=== PATIENT | female | born 1950 | race Caucasian/White ===

== ENCOUNTER 2018-04-09 12:22 | Day surgery (SDC) | payer OTHER ==
[~2018-04-09] VITALS: Ht 160 cm; Wt 107.5 kg
[~2018-04-09 12:22] MED LIST: CARV25 PO; CHOL10002 PO; CITA20 PO; CYAN500 PO; CYCL10 PO; Celexa10 MG PO; Coreg12.5 MG PO; Daily Vitamin1 EAC8 PO; HAIR, SKIN & N1 EAC1 PO; HYDCHL25 PO; IBU800 MG PO; K-Dur10 MEQ PO; LISI5 PO; LOSA50 PO; Levothyroxine500 MCG PO; METF500C PO; PRAVASTATIN SOD10 MG PO
--- NOTE | 2018-04-09 12:41 | NUR ---
Ambulatory in Day Surgery History, Chart, Medications and Allergies reviewed before start of procedure.Lungs clear T/O to Auscultation. Patient confirms NPO status and agrees with scheduled surgery. Patient reports completing Chlorhexadine shower X2 prior to admission to hospital.Surgical site prepped with 2% Chlorhexidine cloth wipe.
--- NOTE | 2018-04-09 19:31 | NUR ---
SHIFT SUMMARY PT A&OX4, VSS, S/P R TKA, SURGICAL BANDAGE WITH TOMEKA WRAP CDI, POLAR CARMITA ON. JADEN PO, DENIES N&V. PAIN MANAGED PER EMAR. REPORT GIVEN TO ANEL MORFIN.
[2018-04-10 04:11] LABS: BASOPHILS ABSOLUTE AUTO 0.01 K/mm3 (0.00-0.23); BASOPHILS PERCENT AUTO 0 % (0-2); EOSINOPHILS PERCENT AUTO 0 % (0-6); Hematocrit 34.2 % (33.0-51.0); Hemoglobin 10.9 g/dL (11.5-16.0); IMMATURE GRAN ABSOLUTE AUTO 0.04 K/mm3 (0.00-0.10); IMMATURE GRAN PERCENT AUTO 1 % (0-1); LYMPHOCYTES ABSOLUTE AUTO 0.62 K/mm3 (0.84-5.20); LYMPHOCYTES PERCENT AUTO 8 % (21-46); MONOCYTES ABSOLUTE AUTO 0.42 K/mm3 (0.16-1.47); MONOCYTES PERCENT AUTO 5 % (4-13); Mean Corpuscular HGB 31.1 pg (26.0-34.0); Mean Corpuscular HGB Conc 31.9 g/dL (31.5-36.5); Mean Corpuscular Volume 98 fL (80-100); Mean Platelet Volume 9.6 fL (9.1-12.4); NEUTROPHILS ABSOLUTE AUTO 6.68 K/mm3 (1.96-9.15); NEUTROPHILS PERCENT AUTO 86 % (41-73); Platelet Count 182 K/mm3 (150-400); RDW Coefficient Variation 13.2 % (11.7-14.2); RDW Standard Deviation 47.6 fL (35.1-46.3); White Blood Cell Count 7.77 K/mm3 (4.00-11.30)
[2018-04-10 04:36] LABS: Magnesium, Blood 1.8 mg/dL (1.6-2.4)
[2018-04-10 04:37] LABS: Bun/Creatinine Ratio 17.3 (12.0-20.0); Creatinine, Blood 1.1 mg/dL (0.40-1.00); Potassium, Blood 4.5 mmol/L (3.5-5.5)
--- NOTE | 2018-04-10 06:19 | NUR ---
SHIFT SUMMARY PT IS POD 1 RIGHT TKA. PT SLEPT WELL OVERNIGHT. AMBULATED TO BR WITH 1 ASSIST AND FWW. MINIMAL PAIN, MEDICATED PER EMAR. WEANED OFF POST OP O2, NOW SATS >90 ON RA. RECEIVED COVERAGE AT HS PER EMAR. PT A&O, ABLE TO MAKE NEEDS KNOWN. WILL CTM UNTIL PASS TO NEXT SHIFT.
[2018-04-10] MEDS ORDERED: PROM25 PO (09:57)
[2018-04-10] MEDS ORDERED: ASPI325EC PO (09:57)
[2018-04-10] MEDS ORDERED: OXYC5 PO (09:57)
--- NOTE | 2018-04-10 11:04 | NUR ---
04/10/18 1104 Radha Mantilla VERIFICATIONS, CHART EDITS.
[2018-04-10] MEDS ORDERED: CLIN300 PO (12:53)
[2018-04-10] MEDS ORDERED: Bactrim Ds Tab1 EACH PO (13:04)
--- NOTE | 2018-04-10 15:40 | NUR ---
PATIENT D/C'D HOME AT THIS TIME WITH FAMILY. PATIENT STATES UNDERSTANDING OF MEDS, ACTIVITY, OP PT, WOUND CARE, F/U APPT, ETC. PATIENT STATES PAIN CONTROLLED, TOLERATING PO, VOIDING WELL. NO CHANGES OR C/O AT THIS TIME.
== END 2018-04-10 15:40 | disposition home or self-care (01) ==
LOC: ORSCMMR 12:22 → ORD 13:30 → ORSCMMR 14:00 → SURS 17:01 → ORSCMMR 04-10 15:40
PROVIDERS: Orthopaedic Surgery
PROC: 8E0YXBZ Computer Assisted Procedure of Lower Extremity (ICD-10-PCS; principal; 2018-04-09 14:00)
PROC: 0SRC0J9 Replacement of Right Knee Joint with Synthetic Substitute, Cemented, Open Approach (ICD-10-PCS; principal; 2018-04-09 14:00)
DX: M17.11 Unilateral primary osteoarthritis, right knee (principal); I10 Essential (primary) hypertension; E11.9 Type 2 diabetes mellitus without complications; E66.01 Morbid (severe) obesity due to excess calories; Z68.41 Body mass index [BMI] 40.0-44.9, adult; Z79.899 Other long term (current) drug therapy
CPT/HCPCS: 36415; 73560-RT; 80048; 82947; 83735; 85025; 88300; 97110; 97116; 97162; C1713; C1776; J0171; J0690; J0735; J1100; J1815; J1885; J2250; J2370; J2405; J2795; J3010; J7120

== ENCOUNTER → 2018-05-01 | Outpatient (CLI) | payer OTHER ==
[~2018-05-01] MED LIST changes: +ASPI325EC PO; +Bactrim Ds Tab1 EACH PO; +CLIN300 PO; +OXYC5 PO; +PROM25 PO
== END | disposition home or self-care (01) ==
LOC: LAB EV 16:00 → LAB SHORT 16:00
DX: R30.0 Dysuria (principal)
CPT/HCPCS: 87077; 87086; 87186

== ENCOUNTER → 2018-07-02 | Outpatient (CLI) | payer OTHER ==
[2018-07-02 16:04] LABS: Source, Urine Clean Catch
[2018-07-02 18:29] LABS: Appearance, Urine Cloudy (Clear); Bilirubin, Urine Neg (Neg); Blood, Urine 1+ (Neg); Color, Urine Yellow (P-Yellow); Glucose Qualitative, Urine Neg (Neg); Ketones, Urine Neg (Neg); Leukocyte Esterase, Urine 2+ (Neg); Nitrite, Urine Pos (Neg); Protein, Urine Neg (Neg); Specific Gravity, Urine 1.015 (1.003-1.022); Urobilinogen, Urine NORM (Normal)
[2018-07-02 18:51] LABS: White Blood Cells, Urine 50-100 /hpf (0-5)
[2018-07-02 18:52] LABS: Bacteria Many /hpf; Squamous Epithelial Cells Few /hpf (Few)
== END | disposition home or self-care (01) ==
LOC: LAB 16:02 → LAB SHORT 16:02
PROVIDERS: Physician Assistant Medical
DX: R35.0 Frequency of micturition (principal); R30.0 Dysuria; R39.15 Urgency of urination
CPT/HCPCS: 81001; 87077; 87086; 87147; 87186

== ENCOUNTER → 2018-07-24 | Outpatient (CLI) | payer OTHER | END | disposition home or self-care (01) | LOC: LAB EV 08:10 → LAB SHORT 08:10 | DX: R30.0 Dysuria (principal) | CPT/HCPCS: 87086 ==

== ENCOUNTER 2019-04-07 01:22 | Emergency (ER) | payer OTHER ==
[~2019-04-07] VITALS: Ht 160 cm; Wt 106.1 kg
[2019-04-07] MEDS ORDERED: LEVSOD25 PO (01:32)
[2019-04-07] MEDS ORDERED: CEFD300 PO (02:29)
== END 2019-04-07 02:40 | disposition home or self-care (01) ==
LOC: ER 01:22
DX: H66.91 Otitis media, unspecified, right ear (principal); Z88.2 Allergy status to sulfonamides; Z79.899 Other long term (current) drug therapy; Z79.84 Long term (current) use of oral hypoglycemic drugs; Z79.82 Long term (current) use of aspirin
CPT/HCPCS: 99282; A9270; A9270-GY

== ENCOUNTER → 2019-06-17 | Outpatient (CLI) | payer OTHER ==
[~2019-06-17] MED LIST changes: +CEFD300 PO; +LEVSOD25 PO
== END | disposition home or self-care (01) ==
LOC: LAB SHORT 09:49 → PLD 09:49
DX: N90.4 Leukoplakia of vulva (principal)
CPT/HCPCS: 88305; 88312

== ENCOUNTER → 2020-03-09 | Outpatient (CLI) | payer OTHER ==
[~2020-03-09] MED LIST changes: +AMOCLA875 PO; +Aspir 8181 MG PO; +OXAYDO5 M2 PO
== END | disposition home or self-care (01) ==
LOC: LAB 13:00 → LAB SHORT 13:00
DX: L98.8 Other specified disorders of the skin and subcutaneous tissue (principal)
CPT/HCPCS: 87070; 87205

== ENCOUNTER → 2020-05-10 | Outpatient (CLI) | payer OTHER | END | disposition home or self-care (01) | LOC: PLD 13:20 → LAB SHORT 13:20 | DX: R30.0 Dysuria (principal) | CPT/HCPCS: 87086 ==

== ENCOUNTER → 2020-06-08 | Outpatient (CLI) | payer OTHER ==
[~2020-06-08] MED LIST changes: -AMOCLA875 PO; -Aspir 8181 MG PO; -OXAYDO5 M2 PO
[2020-06-10 09:33] LABS: Stool Occult Bld Immuno 1 Negative (NEGATIVE)
== END ==
LOC: LAB SHORT 12:01
PROVIDERS: Internal Medicine Gastroenterology
DX: Z83.71 Family history of colonic polyps (principal); Z88.2 Allergy status to sulfonamides
CPT/HCPCS: 82274

== ENCOUNTER 2020-07-20 09:35 | Inpatient (IN) | payer OTHER, MEDICARE ==
[~2020-07-20] VITALS: Ht 160 cm; Wt 107.4 kg
--- NOTE | 2020-07-20 10:45 | NUR ---
Ambulatory in Day Surgery. History, Chart, Medications and Allergies reviewed before start of procedure. Lungs clear T/O to Auscultation. Patient confirms NPO status and agrees with scheduled surgery. Pre-Op teaching done. Pt verbalizes understanding.
--- NOTE | 2020-07-20 16:06 | NUR ---
PATIENT CAME BACK FROM PACU TODAY 07/20/20. POD 0 LEFT SHOULDER REPAIR PATIENT CAME BACK ALERT AND ORIENTED X4. VS ARE WNL AND IS ON 2L NC. PATIENT DENIES PAIN AT THIS TIME. FOAM DRESSING AND GAUZE ARE ON THE LEFT SHOULDER AND IS C/D/I. IMMOBILIZER IS ON. SHE DENIES NUMBNESS AND TINGLING. PATIENT IS ABLE TO WIGGLE FINGERS AND TOES. TOLERATING SMALL AMOUNTS OF LIQUID. SHE IS VOIDING. CALL LIGHT IS WITHIN REACH.
--- NOTE | 2020-07-20 17:04 | NUR ---
SHIFT SUMMARY: POD 0 LEFT TOTAL SHOULDER REPAIR PATIENT IS ALERT AND ORIENTED X4. VS ARE WNL AND IS ON RA. PATIENT DOESN'T REPORT PAIN BUT HAS TAKEN HER SCHEDULED TYLENOL. SHOULDER IS IN IMMOBILIZER AND THE DRESSING IS C/D/I. DENIES NUMBNESS AND TINGLING. SHE IS ABLE TO WIGGLE ALL FINGERS. SHE IS VOIDING AND TOLERATING PO INTAKE. PATIENT IS CURRENTLY SITTING UP IN BED TALKING ON THE PHONE TO FAMILY. CALL LIGHT IS WITHIN REACH.
--- NOTE | 2020-07-21 04:07 | NUR ---
A/OX4. VSS ON RA. 1 EMESIS IN EVENING.
[2020-07-21 05:03] LABS: BASOPHILS ABSOLUTE AUTO 0.02 K/mm3 (0.00-0.23); BASOPHILS PERCENT AUTO 0 % (0-2); EOSINOPHILS PERCENT AUTO 0 % (0-6); Hematocrit 34.9 % (33.0-51.0); Hemoglobin 11.4 g/dL (11.5-16.0); IMMATURE GRAN ABSOLUTE AUTO 0.06 K/mm3 (0.00-0.10); IMMATURE GRAN PERCENT AUTO 1 % (0-1); LYMPHOCYTES ABSOLUTE AUTO 0.76 K/mm3 (0.84-5.20); LYMPHOCYTES PERCENT AUTO 7 % (21-46); MONOCYTES ABSOLUTE AUTO 0.64 K/mm3 (0.16-1.47); MONOCYTES PERCENT AUTO 6 % (4-13); Mean Corpuscular HGB 31.3 pg (26.0-34.0); Mean Corpuscular HGB Conc 32.7 g/dL (31.5-36.5); Mean Corpuscular Volume 96 fL (80-100); Mean Platelet Volume 10.1 fL (9.1-12.4); NEUTROPHILS ABSOLUTE AUTO 9.19 K/mm3 (1.96-9.15); NEUTROPHILS PERCENT AUTO 86 % (41-73); Platelet Count 189 K/mm3 (150-400); RDW Coefficient Variation 13.6 % (11.7-14.2); RDW Standard Deviation 48.6 fL (35.1-46.3); Red Blood Cell Count 3.64 M/mm3 (3.80-5.20); White Blood Cell Count 10.67 K/mm3 (4.00-11.30)
[2020-07-21 05:28] LABS: Anion Gap 5 mmol/L (6-16); Blood Urea Nitrogen 10 mg/dL (8-24); Bun/Creatinine Ratio 12.8 (12.0-20.0); CO2, Blood 28 mmol/L (21-32); Calcium, Blood 8.7 mg/dL (8.5-10.1); Chloride, Blood 97 mmol/L (98-108); Creatinine, Blood 0.78 mg/dL (0.40-1.00); Glomerular Filtration Rate >60 (60-); Glucose, Blood 167 mg/dL (70-99); Magnesium, Blood 2.1 mg/dL (1.6-2.4); Potassium, Blood 4.7 mmol/L (3.5-5.5); Sodium, Blood 130 mmol/L (136-145)
--- NOTE | 2020-07-21 06:14 | NUR ---
A/OX4. VSS ON RA. PAIN MANAGED WELL W/ COLD THERAPY AND SCHEDULED PAIN MEDS.PT C/O PRURITUS, BENADRYL GIVEN AND EFFECTIVE. PATIENT HAD 1 EMESIS AND NAUSEA IN EVENING, ZOFRAN GIVEN, SLEEPING B/W CARE. USING CALL LIGHT TO MAKE NEEDS KNOWN.
[2020-07-21] MEDS ORDERED: Aspir 8181 MG PO (07:53)
[2020-07-21] MEDS ORDERED: AMOCLA875 PO (07:54)
[2020-07-21] MEDS ORDERED: PROM25 PO (07:55)
[2020-07-21] MEDS ORDERED: OXAYDO5 M2 PO (07:55)
--- NOTE | 2020-07-21 11:16 | NUR ---
1105 DISCHARGE TEACHING AND MATERIALS PROVIDED, R FOREARM IV REMOVED, ENSURED PT HAD ALL PERSONAL BELONGINGS AND POLAR PACK IN POSSESSION. PT WAITING IN ROOM FOR HER RIDE TO PICK HER UP. PT COMFORTABLE GOING HOME.
--- NOTE | 2020-07-21 11:55 | NUR ---
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
== END 2020-07-21 11:00 | disposition home or self-care (01) | DRG 483 ==
LOC: ORSCMMR 09:35 → SURS 10:51 → ORSCMMR 11:15 → SURS 14:36 → ORSCMMR 08-03 07:30 → ORD 08-03 11:15 → ORSCMMR 08-03 11:15
PROVIDERS: ADMIT Orthopaedic Surgery
PROC: 0RRK00Z Replacement of Left Shoulder Joint with Reverse Ball and Socket Synthetic Substitute, Open Approach (ICD-10-PCS; principal; 2020-07-20 11:15)
DX: M19.012 Primary osteoarthritis, left shoulder (principal); I10 Essential (primary) hypertension; M79.7 Fibromyalgia; F32.9 Major depressive disorder, single episode, unspecified; M75.112 Incomplete rotator cuff tear or rupture of left shoulder, not specified as traumatic; E11.9 Type 2 diabetes mellitus without complications; G43.909 Migraine, unspecified, not intractable, without status migrainosus; Z96.651 Presence of right artificial knee joint; Z90.49 Acquired absence of other specified parts of digestive tract; Z90.710 Acquired absence of both cervix and uterus; Z98.890 Other specified postprocedural states
CPT/HCPCS: 36415; 73030; 80048; 82947; 83735; 85025; 97110; 97116; 97162; 97166; 97530; 97535; A9270; C1713; C1776; J0171; J0696; J0735; J1100; J1815; J1885; J2250; J2370; J2405; J2704; J2795; J3010; J3370; J7120

== ENCOUNTER 2021-10-16 11:08 | Day surgery (SDC) | payer OTHER ==
[~2021-10-16] VITALS: Ht 160 cm; Wt 105.7 kg
[~2021-10-16 11:08] MED LIST changes: +AMOCLA875 PO; +Aspir 8181 MG PO; +OXAYDO5 M2 PO
[2021-10-16] MEDS ORDERED: HYDPAM50 PO (12:11)
[2021-10-16] MEDS ORDERED: AMLO5 PO (12:12)
[2021-10-16] MEDS ORDERED: PARO20 PO (12:12)
--- NOTE | 2021-10-16 12:52 | NUR ---
10/16/21 1252 Marge Fritz BLOCK COMPLETE IN OR BY DR MENDIOLA. SITE CHECK COMPLETE. VSS.
--- NOTE | 2021-10-16 13:52 | NUR ---
10/16/21 1352 Terrell Carmona GIVEN FOR WORSENING PAIN TO RIGHT WRIST AT 05/04
== END 2021-10-16 14:03 | disposition home or self-care (01) ==
LOC: ORSCSDS 11:08
PROVIDERS: Orthopaedic Surgery
PROC: 01N50ZZ Release Median Nerve, Open Approach (ICD-10-PCS; principal; 2021-10-16 13:00)
DX: G56.03 Carpal tunnel syndrome, bilateral upper limbs (principal); E11.9 Type 2 diabetes mellitus without complications; I10 Essential (primary) hypertension; M79.7 Fibromyalgia; F32.A Depression, unspecified; E03.9 Hypothyroidism, unspecified; E66.01 Morbid (severe) obesity due to excess calories; Z68.41 Body mass index [BMI] 40.0-44.9, adult; Z79.84 Long term (current) use of oral hypoglycemic drugs; Z79.899 Other long term (current) drug therapy
CPT/HCPCS: 82947; A9270; J0690; J2250; J2704; J3010; J7120

== ENCOUNTER 2022-06-04 09:48 | Day surgery (SDC) | payer OTHER ==
[~2022-06-04] VITALS: Ht 160 cm; Wt 106.4 kg
[~2022-06-04 09:48] MED LIST changes: +AMLO5 PO; +HYDPAM50 PO; +PARO20 PO
--- NOTE | 2022-06-04 12:36 | NUR ---
06/04/22 1236 Olga Lidia Laboy PT ON [facility] WITH IRONING BOARD UNDER LEFT ARM, RIGHT SIDE RAIL UP ON GURNEY.
--- NOTE | 2022-06-04 13:26 | NUR ---
06/04/22 1326 EMELY PAULA Did trial from 10L to 5L. Pt tolerated well. Continues to be on 5L.
--- NOTE | 2022-06-04 13:39 | NUR ---
06/04/22 1339 EMELY PAULA OCCASSIONALLY O2 SAT DECREASES TO LOW 90'S. REMOVED EXTRA HEAD SUPPORT, O2 INCREASES ON RA TO 96%. 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
== END 2022-06-04 14:20 | disposition home or self-care (01) ==
LOC: ORSCSDS 09:48
PROVIDERS: Orthopaedic Surgery
PROC: 01N54ZZ Release Median Nerve, Percutaneous Endoscopic Approach (ICD-10-PCS; principal; 2022-06-04 11:15)
PROC: 0LN80ZZ Release Left Hand Tendon, Open Approach (ICD-10-PCS; principal; 2022-06-04 11:15)
DX: G56.02 Carpal tunnel syndrome, left upper limb (principal); M65.30 Trigger finger, unspecified finger; M67.432 Ganglion, left wrist; I10 Essential (primary) hypertension; E11.9 Type 2 diabetes mellitus without complications; E03.9 Hypothyroidism, unspecified; Z79.899 Other long term (current) drug therapy; E66.01 Morbid (severe) obesity due to excess calories; Z68.41 Body mass index [BMI] 40.0-44.9, adult
CPT/HCPCS: 82947; J0171; J0690; J1100; J1885; J2250; J2405; J2704; J2765; J2795; J3010; J7120

== ENCOUNTER → 2022-09-20 | Outpatient (CLI) | payer OTHER ==
[2022-09-20 13:59] LABS: Albumin, Blood 3.8 g/dL (3.4-5.0); Albumin/Globulin Ratio 1.1 (0.8-1.8); Bilirubin, Total 0.4 mg/dL (0.1-1.0); Bun/Creatinine Ratio 16.9 (12.0-20.0); Calcium, Blood 8.8 mg/dL (8.5-10.1); Creatinine, Blood 0.77 mg/dL (0.40-1.00); Globulin, Blood 3.6 g/dL (2.2-4.0); Potassium, Blood 4.2 mmol/L (3.5-5.5); Thyroid Stimulating Hormone 2.89 uIU/mL (0.360-4.800); Total Protein, Blood 7.4 g/dL (6.4-8.2)
== END ==
LOC: LAB 09:20 → LAB SHORT 09:20
PROVIDERS: Family Medicine
DX: E03.9 Hypothyroidism, unspecified (principal); E11.9 Type 2 diabetes mellitus without complications
CPT/HCPCS: 80053; 83036; 84443

== ENCOUNTER → 2023-08-09 | Outpatient (CLI) | payer OTHER ==
[2023-08-09 16:25] LABS: Albumin, Blood 3.7 g/dL (3.4-5.0); Bilirubin, Total 0.4 mg/dL (0.1-1.0); Bun/Creatinine Ratio 16.4 (12.0-20.0); Calcium, Blood 9.5 mg/dL (8.5-10.1); Creatinine, Blood 1.1 mg/dL (0.40-1.00); Globulin, Blood 3.7 g/dL (2.2-4.0); Magnesium, Blood 1.9 mg/dL (1.6-2.4); Potassium, Blood 4.2 mmol/L (3.5-5.5); Thyroid Stimulating Hormone 4.289 uIU/mL (0.360-4.800); Total Protein, Blood 7.4 g/dL (6.4-8.2)
== END | disposition home or self-care (01) ==
LOC: LAB SHORT 14:58 → LAB 14:58
PROVIDERS: Physician Assistant
DX: R25.2 Cramp and spasm (principal)
CPT/HCPCS: 36415; 80053; 82306; 83735; 84443

== ENCOUNTER → 2024-05-13 | Outpatient (CLI) | payer OTHER ==
[2024-05-13 14:35] LABS: Campylobacter Sp Not Detected (NOT DETECT); Plesiomonas Shigelloides Not Detected (NOT DETECT)
[2024-05-13 14:36] LABS: Adenovirus F 40/41 Not Detected (NOT DETECT); Astrovirus Not Detected (NOT DETECT); Cryptosporidium Not Detected (NOT DETECT); Cyclospora Cayetanensis Not Detected (NOT DETECT); E. Coli O157 Not Detected (NOT DETECT); Entamoeba Histolytica Not Detected (NOT DETECT); Enteroaggregative E. coli-EAEC Not Detected (NOT DETECT); Enteropathogenic E. coli-EPEC Not Detected (NOT DETECT); Enterotoxigenic E. coli-ETEC Not Detected (NOT DETECT); Giardia Lamblia Not Detected (NOT DETECT); Norovirus GI/GII Not Detected (NOT DETECT); Rotavirus A Not Detected (NOT DETECT); Salmonella Sp Not Detected (NOT DETECT); Sapovirus Not Detected (NOT DETECT); Shiga Toxin-prod E. coli-STEC Not Detected (NOT DETECT); Shigella/Enteroin E. coli-EIEC Not Detected (NOT DETECT); Vibrio Cholerae Not Detected (NOT DETECT); Vibrio Sp Not Detected (NOT DETECT); Yersinia Enterocolitica Not Detected (NOT DETECT)
[2024-05-21 00:02] LABS: OVA AND PARASITE,FECAL INTERP Negative (Negative)
== END | disposition home or self-care (01) ==
LOC: LAB SHORT 08:30 → LAB 08:30
PROVIDERS: Physician Assistant
DX: R19.5 Other fecal abnormalities (principal)
CPT/HCPCS: 87177; 87209; 87324; 87507

== ENCOUNTER → 2024-06-12 | Outpatient (CLI) | payer OTHER ==
[2024-06-13 07:22] LABS: Bacterial Vaginosis PCR Negative (NEGATIVE); Candida Group, PCR NOT DETECTED (NOT DETECT); Candida glabrata-krusei, PCR NOT DETECTED (NOT DETECT)
== END ==
LOC: LAB 15:59 → LAB SHORT 15:59
PROVIDERS: Physician Assistant
DX: N89.8 Other specified noninflammatory disorders of vagina (principal)
CPT/HCPCS: 81515

== ENCOUNTER 2024-10-08 09:12 | Day surgery (SDC) | payer OTHER ==
[~2024-10-08] VITALS: Ht 160 cm; Wt 101.7 kg
[2024-10-08] MEDS ORDERED: Hydroxyzine HCl50 MG (09:28)
[2024-10-08] MEDS ORDERED: CALTRATE 600 P1 EACH (09:28)
[2024-10-08] MEDS ORDERED: METF500 (09:28)
[2024-10-08 11:17] VITALS: BP 116/73
== END 2024-10-08 11:25 | disposition home or self-care (01) ==
LOC: ORSCSDS 09:12
PROVIDERS: Surgery
PROC: 0DBM8ZX Excision of Descending Colon, Via Natural or Artificial Opening Endoscopic, Diagnostic (ICD-10-PCS; principal; 2024-10-08 10:45)
PROC: 0DBK8ZX Excision of Ascending Colon, Via Natural or Artificial Opening Endoscopic, Diagnostic (ICD-10-PCS; principal; 2024-10-08 10:45)
DX: Z12.11 Encounter for screening for malignant neoplasm of colon (principal); Z83.719 Family history of colon polyps, unspecified; K57.90 Diverticulosis of intestine, part unspecified, without perforation or abscess without bleeding; D12.4 Benign neoplasm of descending colon; D12.2 Benign neoplasm of ascending colon; G47.33 Obstructive sleep apnea (adult) (pediatric); I10 Essential (primary) hypertension; E11.9 Type 2 diabetes mellitus without complications; E03.9 Hypothyroidism, unspecified; F41.9 Anxiety disorder, unspecified; F32.A Depression, unspecified; E66.01 Morbid (severe) obesity due to excess calories; Z68.39 Body mass index [BMI] 39.0-39.9, adult; Z79.84 Long term (current) use of oral hypoglycemic drugs; Z79.82 Long term (current) use of aspirin; Z79.899 Other long term (current) drug therapy
CPT/HCPCS: 82947; 88305; J2704; J7120